=== PATIENT | male | born 1995 | race Caucasian/White ===

== ENCOUNTER 2023-12-12 05:32 | Emergency (ER) | payer OTHER ==
[2023-12-12] MEDS: Sodium Chloride 0.9% 1,000 ML IV ONE (05:55)
[2023-12-12] MEDS: Ondansetron 4 MG/2 ML SDV IVPUSH ONE (05:56)
[2023-12-12] MEDS: Pantoprazole 40 MG in Sodium Chloride 0.9% 10 ML IVPUSH ONE (05:56)
[2023-12-12 06:10] LABS: BASOPHILS ABSOLUTE AUTO 0.07 K/uL (0.00-0.20); BASOPHILS PERCENT AUTO 0.9 % (0.0-1.0); EOSINOPHILS ABSOLUTE AUTO 0.65 K/uL (0.00-0.45); EOSINOPHILS PERCENT AUTO 8.8 % (0.0-6.0); HEMATOCRIT 48.3 % (42.0-52.0); HEMOGLOBIN 17.1 g/dL (14.0-18.0); IMMATURE GRAN ABSOLUTE AUTO 0.02 K/uL (0.00-0.05); IMMATURE GRAN PERCENT AUTO 0.3 % (0.0-0.4); LYMPHOCYTES ABSOLUTE AUTO 1.96 K/uL (1.00-4.80); LYMPHOCYTES PERCENT AUTO 26.5 % (24.0-44.0); MEAN CORPUSCULAR HEMOGLOBIN 30.5 pg (28.0-32.0); MEAN CORPUSCULAR HGB CONC 35.4 g/dL (32.0-36.0); MEAN CORPUSCULAR VOLUME 86.1 fL (83.0-99.0); MEAN PLATELET VOLUME 9.4 fL (9.4-12.4); MONOCYTES ABSOLUTE AUTO 0.55 K/uL (0.00-0.80); MONOCYTES PERCENT AUTO 7.4 % (0.0-8.0); NEUTROPHILS ABSOLUTE AUTO 4.15 K/uL (1.80-7.70); NEUTROPHILS PERCENT AUTO 56.1 % (41.0-71.0); PLATELET COUNT,PLT 247 K/uL (150-400); RED BLOOD CELL COUNT 5.61 M/uL (4.52-5.90)
[2023-12-12 06:36] LABS: CALCIUM 9.7 mg/dL (8.5-10.1); CARBON DIOXIDE,CO2 28.8 mmol/L (21.0-32.0); CREATININE 1.3 mg/dL (0.8-1.3); EST CRCL DRUG DOSING (CG) 100.12 mL/min; POTASSIUM,K 4.1 mmol/L (3.5-5.1)
== END 2023-12-12 07:21 | disposition still patient (30) ==
LOC: MW.ED 05:32
DX: T18.128A Food in esophagus causing other injury, initial encounter (principal); W44.8XXA Other foreign body entering into or through a natural orifice, initial encounter
CPT/HCPCS: 36415; 80048; 85025; 96361; 96374; 96375; 99284; C9113; J2405; J3490; J7030; 99283

== ENCOUNTER 2023-12-12 06:00 | Day surgery (SDC) | payer OTHER ==
[2023-12-12] MEDS ORDERED: fentaNYL 100 MCG/2 ML SDV ONE (07:47)
[2023-12-12] MEDS ORDERED: Glycopyrrolate 0.2 MG/ML SDV ONE (08:28)
[2023-12-12] MEDS ORDERED: Succinylcholine/Sod PF 100 MG/5 ML SYRINGE IV ONE (08:28)
[2023-12-12] MEDS ORDERED: propofoL 50 ML ONE (08:28)
== END 2023-12-12 09:00 | disposition home or self-care (01) ==
LOC: MW.SDS 06:00
PROVIDERS: ATTEND Surgery
DX: T18.128A Food in esophagus causing other injury, initial encounter (principal); K22.10 Ulcer of esophagus without bleeding
CPT/HCPCS: 43247; J0330; J2704; J3010; J3490